=== PATIENT | female | born 1990 | race Caucasian/White ===

== ENCOUNTER 2017-08-16 17:39 | Emergency (ER) | payer OTHER ==
[~2017-08-16 17:39] MED LIST: IBUP600 PO; NIFE1TAB85 PO; OXYC1SOL5 PO; PREN1TAB30 PO
--- NOTE | 2017-08-16 19:27 | PD ---
HPI Chief Complaint Right lower quadrant pain and to the right inguinal area Date Seen: Aug 16, 2017 Time Seen: 19:15 Travel History International Travel<30 Days: No Contact w/Intl Traveler<30Days: No Known Affected Area: No History of Present Illness HPI 26-year-old white female at 22 weeks gestation who presents with the day long right lower quadrant pain that radiates in the right groin area. She denies fever vomiting but has had a minimal amount of nausea, no bleeding or leakage of fluid, heart tones 140s no contractions noted pain as sharp knifelike and hurts when she moves. Weeks Gestation: 22 Para: 1 : 2 History Obstetric History Obstetric History 1 Past Surgical History Narrative Surgical A Social History Alcohol Use: No Tobacco Use: No Substance Abuse: No Allergies-Medications (Allergen,Severity, Reaction): Coded Allergies: No Known Allergies (Unverified , 12/16/15) Home Meds Active Scripts Nifedipine (Nifedipine Er) 30 Mg Tab, 30 MG PO DAILY for hypertension, #10 TAB 1 Refill Prov:Rachelle Carranza MD 01/08/16 Oxycodone W/ Acetaminophen (Oxycodone/Acetaminophen 5-325 mg/5Ml) 5 mg/325 mg Tab, 1 TAB PO Q4H Y for PAIN, #30 TAB 0 Refills Prov:Rachelle Carranza MD 01/07/16 Ibuprofen (Motrin 600 Mg Tab) 600 Mg Tab, 600 MG PO Q6H Y for PAIN SCALE 1 TO 4 , #30 TAB 1 Refill Prov:Rachelle Carranza MD 01/07/16 Reported Medications Vit W/ Ferrous Fumara ( Vitamin 27-0.8 mg) 1 Tab Tab, 1 TAB PO DAILY 12/16/15 Review of Systems General / Constitutional: No: Fever, Weight Gain, Chills, Other Eyes: No: Diploplia, Blurred Vision, Visual changes, Pain, Photophobia HENT: No: Headaches, Vertigo, Lightheadedness Cardiovascular: No: Irregular Rhythm, Chest Pain or Discomfort, Palpitations, Tachycardia, Syncope, Varicosities, Edema, Cyanosis Respiratory: No: Cough, Short of Breath, Other Gastrointestinal: Abdominal Pain, No: Nausea, Vomiting, Diarrhea Genitourinary: No: Decreased Urinary Output, Oliguria Musculoskeletal: No: Limited ROM, Weakness, Cramping, Edema, Pain Skin: No Rash, No Itching, No Dryness, No Lumps, No Change in Pigmentation, No Change in Nails, No Alopecia, No Lesions Neurologic: No: Weakness, Dizziness, Syncope, Focal Abnormalities, Coordination Problem, Headache, Slurred Speech, Seizures Psychiatric: No: Depression, Suicidal Ideations, Homicidal Ideation Endocrine: No: Heat Intolerance, Cold Intolerance, Polydipsia, Polyuria, Other Physical Exam Narrative GENERAL: Well-nourished, well-developed patient. SKIN: Warm and dry. HEAD: Normocephalic and atraumatic. EYES: No scleral icterus. No injection or drainage. ENT: No nasal drainage noted. Mucous membranes pink. Airway patent. NECK: Supple, trachea midline. No JVD. CARDIOVASCULAR: Regular rate and rhythm without murmurs, gallops, or rubs. RESPIRATORY: Breath sounds equal bilaterally. No accessory muscle use. BREASTS: Bilateral exam showed no masses , no retractions, no nipple discharge. ABDOMEN/GI: Abdomen soft, non-tender, bowel sounds present, no rebound, no guarding Gravid to [22-] weeks size Fundal Height: [At umbilicus-] GENITOURINARY: External Genitalia: intact and normal in appearance BUS glands: [-] Cervix: [-Posterior] Dilatation: [Closed-] Effacement: [-] Thick Station: [-3] ] Membranes: [intact Uterine Contractions: [-none] FHT's: Category: [1-] Baseline: [-133] Reactive: [-yes] Variability: [mod-] Decels: [-0] EXTREMITIES: No cyanosis or edema. BACK: Nontender without obvious deformity. No CVA tenderness. NEUROLOGICAL: Awake and alert. Motor and sensory grossly within normal limits. Five out of 5 muscle strength in all muscle groups. Normal speech. Data Data Labs Urine dipstick is negative MDM Interpretation(s) Patient is 26-year-old white female PCS at 22 weeks who presents complaining right lower quadrant pain. That radiates into the right groin today. Pain is sharp worsening with movement. Her classic example round ligament pain. Urinalysis negative no contractions on the monitor, heart tones 140s. Cervix is closed high posterior Plan The patient was offered a pain shot but she did not want to do that. She will use Tylenol by mouth, heating pad, or hot bath relief. Increase her fluid intake. Patient hasn't 18-year-old baby that she carries all the time and has to deal with that can cause a lot of pain she was advised to stay at bedrest for a day or so somebody else help her with the baby Diagnosis Diagnosis: Primary Impression: Round ligament pain Additional Impression: 22 weeks gestation of Disposition: 01 DISCHARGE HOME Condition: Stable Ky Parra II, MD Aug 16, 2017 19:27
== END 2017-08-16 19:38 | disposition home or self-care (01) ==
LOC: HOBED 17:39
DX: O26.892 Other specified pregnancy related conditions, second trimester (principal); R10.2 Pelvic and perineal pain; Z3A.22 22 weeks gestation of pregnancy
CPT/HCPCS: 99283

== ENCOUNTER 2017-10-30 12:29 | Emergency (ER) | payer OTHER ==
[2017-10-30 12:54] VITALS: BP 115/70; PULSE 69
[2017-10-30 13:04] VITALS: TEMP 98.2
[2017-10-30 13:05] VITALS: BP 118/78; PULSE 80; RESP 20
--- NOTE | 2017-10-30 13:27 | PD ---
HPI Chief Complaint headaches, 7lb weight gain in 2 weeks Date Seen: Oct 30, 2017 Time Seen: 13:14 Travel History International Travel<30 Days: No Contact w/Intl Traveler<30Days: No History of Present Illness HPI Patient is a 27 year old at 33 and 0/7 weeks gestation by first trimester US who presents to the OB ED with headaches and increased weight gain of 7lb in two weeks. History significant for pre-eclampsia and placenta abruption necessitating CS delivery in 2015. She denies leakage of fluid, vaginal bleeding , and contractions. She feels baby moving regularly. She has mild headache relieved by acetaminophen and denies N/V/D/fever/sick contacts/SOB/calf pain/ dizziness/seeing spots. OB care is with Dr. Ramirez. History Past Medical History Medical History: Denies Significant Hx Obstetric History Obstetric History : 2015, CS 2/2 abruption, no post-operative complications reported G2: current, failed 1hr GTT = 159, 3 hr GTT pending Past Surgical History Narrative Surgical CS x 1 Family History Family History: Negative Social History Alcohol Use: No Tobacco Use: No Substance Abuse: No Allergies-Medications (Allergen,Severity, Reaction): Coded Allergies: No Known Allergies (Unverified , 12/16/15) Home Meds Active Scripts Nifedipine (Nifedipine Er) 30 Mg Tab, 30 MG PO DAILY for hypertension, #10 TAB 1 Refill Prov:Rachelle Carranza MD 01/08/16 Oxycodone W/ Acetaminophen (Oxycodone/Acetaminophen 5-325 mg/5Ml) 5 mg/325 mg Tab, 1 TAB PO Q4H Y for PAIN, #30 TAB 0 Refills Prov:Rachelle Carranza MD 01/07/16 Ibuprofen (Motrin 600 Mg Tab) 600 Mg Tab, 600 MG PO Q6H Y for PAIN SCALE 1 TO 4 , #30 TAB 1 Refill Prov:Rachelle Carranza MD 01/07/16 Reported Medications Vit W/ Ferrous Fumara ( Vitamin 27-0.8 mg) 1 Tab Tab, 1 TAB PO DAILY 12/16/15 Review of Systems Except as stated in HPI: all other systems reviewed are Neg Physical Exam Vital Signs Date Time Temp Pulse Resp B/P (MAP) Pulse Ox O2 Delivery O2 Flow Rate FiO2 10/30/17 13:05 20 10/30/17 13:04 98.2 10/30/17 12:54 69 115/70 (85) Narrative GENERAL: Well-nourished, well-developed patient. SKIN: Warm and dry. HEAD: Normocephalic and atraumatic. EYES: No scleral icterus. No injection or drainage. ENT: No nasal drainage noted. Mucous membranes pink. Airway patent. NECK: Supple, trachea midline. No JVD. CARDIOVASCULAR: Regular rate and rhythm without murmurs, gallops, or rubs. RESPIRATORY: Breath sounds equal bilaterally. No accessory muscle use. ABDOMEN/GI: Abdomen gravid, non-tender, bowel sounds present, no rebound, no guarding. GENITOURINARY: deferred Uterine Contractions: absent FHT's: Category: 1 Baseline: 120s Reactive: 140s Variability: mod Decels: absent EXTREMITIES: No cyanosis or edema. BACK: Nontender without obvious deformity. No CVA tenderness. NEUROLOGICAL: Awake and alert. Motor and sensory grossly within normal limits. Five out of 5 muscle strength in all muscle groups. Normal speech. Data Data Vital Signs Reviewed: Yes (BP 115/70, repeat 118/78, 98.2F) Orders Orders Vital Signs (Adult) .ON ADMISSION (10/30/17 13:03) ^ Labor Status (10/30/17 13:03) Urinalysis - C+S If Indicated (10/30/17 13:03) ^ Non Stress Test (10/30/17 13:03) ^ Hydration (10/30/17 13:03) Cbc No Diff, Includes Plts (10/30/17 13:03) Comprehensive Metabolic Panel (10/30/17 13:03) Uric Acid (10/30/17 13:03) Protein Creat Ratio, Random Ur (10/30/17 13:04) MDM Medical Record Reviewed: Yes Narrative Course / MDM 27 year old at 33 and 0/7 weeks gestation by first trimester US who presents to the OB ED with headaches and increased weight gain of 7lb in two weeks. Due to history of placental abruption, pre-eclampsia will proceed with PreE work-up. If labs wnl, will discharge home with routine follow up with Dr. Ramirez. No CTX. Intrauterine : Category 1 tracing Patient desires vaginal delivery Order CBC, CMP, UA, uric acid, urine protein/creatinine ratio IV fluids Monitor heart tones Routine care Hypertension in : History of pre-E in previous complicated by placental abruption, CS Had mild headache this morning, relieved by acetaminophen, no current headache No other symptoms Normal BP in OB ED Rule out preeclampsia as above Elevated 1 hr GTT: Per report Patient has 3 hr GTT ordered SDW Dr. Sadaf Buck Diagnosis Diagnosis: Primary Impression: 33 weeks gestation of Additional Impressions: History of pre-eclampsia Headache Disposition: DISCHARGE HOME Patient Instructions: Preeclampsia (ED) Annabelle Joe MD R2 Oct 30, 2017 13:27
[2017-10-30 13:32] LABS: HEMATOCRIT 33.3 % (35.0-46.0); MEAN CELL VOLUME 82.5 FL (80.0-100.0); MEAN CORPUSCULAR HEMOGLOBIN 27.3 PG (27.0-34.0); MEAN PLATELET VOLUME 8.3 FL (7.0-11.0); PLATELET COUNT 223 TH/MM3 (150-450); RED BLOOD COUNT 4.03 MIL/MM3 (4.00-5.30); RED CELL DISTRIBUTION WIDTH 13.4 % (11.6-17.2); WHITE BLOOD COUNT 9.5 TH/MM3 (4.0-11.0)
[2017-10-30 13:34] LABS: AMORPHOUS SEDIMENT, URINE RARE; BACTERIA, URINE OCC /hpf; BILIRUBIN, URINE NEG (NEG); BLOOD, URINE NEG (NEG); GLUCOSE,URINE NEG (NEG); KETONE, URINE NEG (NEG); MUCUS URINE FEW /lpf (OCC); NITRITE,URINE NEG (NEG); PH, URINE 6.5 (5.0-8.5); SQUAMOUS EPITHELIAL CELL URINE 3 /hpf (0-5); TRANSITIONAL EPI CELLS, URINE <1 /hpf; URINE COLOR LIGHT-YELLOW (YELLW/STRAW); URINE LEUKOCYTE ESTERASE TRACE (NEG)
[2017-10-30 13:58] LABS: ALBUMIN 2.9 GM/DL (3.4-5.0); ALT (GPT) 10 U/L (10-53); AST (GOT) 7 U/L (15-37); BICARBONATE 21.5 MEQ/L (21.0-32.0); BLOOD UREA NITROGEN 4 MG/DL (7-18); CALCIUM 8.6 MG/DL (8.5-10.1); CHLORIDE 108 MEQ/L (98-107); CREATININE 0.56 MG/DL (0.50-1.00); GLOMERULAR FILTRATION RATE 132 ML/MIN (>89); GLUCOSE,RANDOM 62 MG/DL (74-106); SODIUM (NA) 139 MEQ/L (136-145)
[2017-10-30 14:00] LABS: ALKALINE PHOSPHATASE 146 U/L (45-117); TOTAL BILIRUBIN ADULT 0.3 MG/DL (0.2-1.0); TOTAL PROTEIN 6.6 GM/DL (6.4-8.2)
== END 2017-10-30 14:04 | disposition home or self-care (01) ==
LOC: HOBED 12:29
DX: O26.893 Other specified pregnancy related conditions, third trimester (principal); R51 Headache; Z3A.33 33 weeks gestation of pregnancy
CPT/HCPCS: 36415; 59025; 80053; 81001; 82570; 84156; 84550; 85027

== ENCOUNTER 2017-11-10 16:14 | Emergency (ER) | payer OTHER ==
[2017-11-10] VITALS (20 sets, daily range): PULSE 81–103; O2SAT 99–100
[2017-11-10] MEDS ORDERED: ONDANSETRON HCL 4 MG/2 ML VIAL IV PUSH ONE (17:00)
[2017-11-10] MEDS ORDERED: LACTATED RINGER'S 1000 ML INJ 1,000 ML IV ONE (17:00)
--- NOTE | 2017-11-10 17:04 | PD ---
HPI Chief Complaint chills 3 days nausea and vomiting 3 days diarrhea 3 days Nasal congestion 1 week Travel History International Travel<30 Days: No Contact w/Intl Traveler<30Days: No Known Affected Area: No History of Present Illness HPI Pt is a 27 yo at 34 weeks and 4 days. EDC 12/18/2017, scheduled repeat C Section on 12-12-2017. care with Dr Ramirez. Pt reports nausea and vomiting, as well as diarrhea past 3 days days. Reports similar contacts at work with similar symptoms. Pt denies any cough but reports nasal congestion past 1 week Active movements. Patient denies any abdominal pain No vaginal bleeding or discharge. Weeks Gestation: 35 Para: 1 : 2 History Past Medical History Medical History: Denies Significant Hx Obstetric History Obstetric History previous C Section. was complicated by pre-eclampsia and placental abruption. Past Surgical History Narrative Surgical Previous C Section laparoscopic ovarian cystectomy Family History Family History: Negative Social History Alcohol Use: No Tobacco Use: No Substance Abuse: No Allergies-Medications (Allergen,Severity, Reaction): Coded Allergies: No Known Allergies (Unverified , 12/16/15) Home Meds Active Scripts Ondansetron Odt (Zofran Odt) 4 Mg Tab, 4 MG SL Q6HR Y for Nausea/Vomiting, #30 TAB 0 Refills Prov:Wicho Lucas MD 11/10/17 Nifedipine (Nifedipine Er) 30 Mg Tab, 30 MG PO DAILY for hypertension, #10 TAB 1 Refill Prov:Rachelle Carranza MD 01/08/16 Oxycodone W/ Acetaminophen (Oxycodone/Acetaminophen 5-325 mg/5Ml) 5 mg/325 mg Tab, 1 TAB PO Q4H Y for PAIN, #30 TAB 0 Refills Prov:Rachelle Carranza MD 01/07/16 Ibuprofen (Motrin 600 Mg Tab) 600 Mg Tab, 600 MG PO Q6H Y for PAIN SCALE 1 TO 4 , #30 TAB 1 Refill Prov:Rachelle Carranza MD 01/07/16 Reported Medications Vit W/ Ferrous Fumara ( Vitamin 27-0.8 mg) 1 Tab Tab, 1 TAB PO DAILY 12/16/15 Review of Systems Except as stated in HPI: all other systems reviewed are Neg Physical Exam Narrative GENERAL: Well-nourished, well-developed patient. SKIN: Warm and dry. HEAD: Normocephalic and atraumatic. EYES: No scleral icterus. No injection or drainage. ENT: No nasal drainage noted. Mucous membranes pink. Airway patent. NECK: Supple, trachea midline. No JVD. CARDIOVASCULAR: Regular rate and rhythm without murmurs, gallops, or rubs. RESPIRATORY: Breath sounds equal bilaterally. No accessory muscle use. BREASTS: Bilateral exam showed no masses , no retractions, no nipple discharge. ABDOMEN/GI: Abdomen soft, non-tender, bowel sounds present, no rebound, no guarding Gravid to [35] weeks size Fundal Height: [35cm] GENITOURINARY: External Genitalia: intact and normal in appearance BUS glands: [wnl] Cervix: [firm] Dilatation: [closed] Effacement: [uneffaced] Station: [-3] Presentation: [-] Membranes: [intact] Uterine Contractions: [rare] FHT's: Category: [1] Baseline: [140s] Reactive: [-] Variability: [good] Decels: [none] EXTREMITIES: No cyanosis or edema. BACK: Nontender without obvious deformity. No CVA tenderness. NEUROLOGICAL: Awake and alert. Motor and sensory grossly within normal limits. Five out of 5 muscle strength in all muscle groups. Normal speech. Data Data Vital Signs Reviewed: Yes [facility] Medical Record Reviewed: Yes Plan Pt is a 27 who presents at 34 weeks and 4 days with c/o nausea/ vomiting and diarrhea past 3 days. Pt has sick contacts at work. She is afebrile and lungs are clear. Likely viral gastroenteritis. Possible dehydration. UA sent, start LR IV bolus.IV antiemetic. CBC wnl, UA wnl, no suggestion of UTI, SG 1.025, Positive ketones. No electrolyte deficiency Patient feels better after IVF/ Zofran. Will DC home on Zofran ODT, advised liberal fluids. Has FU with office next week. Diagnosis Diagnosis: Primary Impression: 35 weeks gestation of Additional Impressions: Gastroenteritis Dehydration Ketonuria Disposition: 01 DISCHARGE HOME Condition: Stable Scripts Ondansetron Odt (Zofran Odt) 4 Mg Tab 4 MG SL Q6HR Y for Nausea/Vomiting, #30 TAB 0 Refills Prov: Wicho Lucas MD 11/10/17 Wicho Lucas MD Nov 10, 2017 17:04
[2017-11-10 17:44] LABS: HEMATOCRIT 31.8 % (35.0-46.0); HEMOGLOBIN 10.8 GM/DL (11.6-15.3); MEAN CELL VOLUME 80.8 FL (80.0-100.0); MEAN CORPUSCULAR HEMOGLOBIN 27.4 PG (27.0-34.0); MEAN CORPUSCULAR HGB CONC 33.9 % (32.0-36.0); MEAN PLATELET VOLUME 9.1 FL (7.0-11.0); PLATELET COUNT 195 TH/MM3 (150-450); RED BLOOD COUNT 3.93 MIL/MM3 (4.00-5.30); RED CELL DISTRIBUTION WIDTH 13.6 % (11.6-17.2); WHITE BLOOD COUNT 9.9 TH/MM3 (4.0-11.0)
[2017-11-10 17:54] LABS: AMORPHOUS SEDIMENT, URINE RARE; BILIRUBIN, URINE NEG (NEG); BLOOD, URINE NEG (NEG); CALCIUM OXALATE CRYSTALS,URINE FEW /hpf; GLUCOSE,URINE NEG (NEG); KETONE, URINE 40 mg/dL (NEG); MUCUS URINE MANY /lpf (OCC); NITRITE,URINE NEG (NEG); SQUAMOUS EPITHELIAL CELL URINE 2 /hpf (0-5); URINE COLOR YELLOW (YELLW/STRAW); URINE LEUKOCYTE ESTERASE NEG (NEG)
[2017-11-10 18:15] LABS: BICARBONATE 21.1 MEQ/L (21.0-32.0); CALCIUM 8.1 MG/DL (8.5-10.1); CREATININE 0.65 MG/DL (0.50-1.00)
[2017-11-10] MEDS ORDERED: ZOFR4TAB3 SL (18:27)
== END 2017-11-10 18:37 | disposition home or self-care (01) ==
LOC: HOBED 16:14
DX: O99.283 Endocrine, nutritional and metabolic diseases complicating pregnancy, third trimester (principal); E86.0 Dehydration; O99.613 Diseases of the digestive system complicating pregnancy, third trimester; K52.9 Noninfective gastroenteritis and colitis, unspecified; Z3A.35 35 weeks gestation of pregnancy
CPT/HCPCS: 59025; 80048; 81001; 85027; 96374; 99284; J2405; J7120

== ENCOUNTER 2017-11-13 12:23 | Emergency (ER) | payer OTHER ==
[2017-11-13] VITALS (7 sets, daily range): BP systolic 103–131; BP diastolic 73–83; PULSE 70–160; RESP 16
[~2017-11-13 12:23] MED LIST changes: +ZOFR4TAB3 SL
[2017-11-13 13:34] LABS: HEMATOCRIT 31.3 % (35.0-46.0); HEMOGLOBIN 10.6 GM/DL (11.6-15.3); MEAN CELL VOLUME 80.8 FL (80.0-100.0); MEAN CORPUSCULAR HEMOGLOBIN 27.3 PG (27.0-34.0); MEAN CORPUSCULAR HGB CONC 33.8 % (32.0-36.0); MEAN PLATELET VOLUME 8.8 FL (7.0-11.0); PLATELET COUNT 212 TH/MM3 (150-450); RED BLOOD COUNT 3.88 MIL/MM3 (4.00-5.30); RED CELL DISTRIBUTION WIDTH 13.5 % (11.6-17.2); WHITE BLOOD COUNT 6.8 TH/MM3 (4.0-11.0)
[2017-11-13 13:52] LABS: ALBUMIN 2.7 GM/DL (3.4-5.0); ALT (GPT) 13 U/L (10-53); BICARBONATE 20.3 MEQ/L (21.0-32.0); CALCIUM 8.5 MG/DL (8.5-10.1); CHLORIDE 111 MEQ/L (98-107); CREATININE 0.56 MG/DL (0.50-1.00); GLOMERULAR FILTRATION RATE 132 ML/MIN (>89); GLUCOSE,RANDOM 66 MG/DL (74-106); SODIUM (NA) 140 MEQ/L (136-145)
[2017-11-13 13:55] LABS: ALKALINE PHOSPHATASE 188 U/L (45-117); AST (GOT) 15 U/L (15-37); BLOOD UREA NITROGEN 5 MG/DL (7-18); TOTAL BILIRUBIN ADULT 0.3 MG/DL (0.2-1.0); TOTAL PROTEIN 6.5 GM/DL (6.4-8.2)
--- NOTE | 2017-11-13 14:01 | PD ---
HPI Chief Complaint Elevated blood pressure, diarrhea Date Seen: Nov 13, 2017 Time Seen: 13:56 Travel History International Travel<30 Days: No Contact w/Intl Traveler<30Days: No Known Affected Area: No History of Present Illness HPI 27-year-old 2 para 1 at 35+ weeks gestation who was sent by Dr. Ramirez' s office for evaluation of elevated blood pressure. Patient has a history of preeclampsia with her first . She has had noted elevated blood pressures prior to today when she had a single diastolic readings in the 90s. She denies headache, visual changes, abdominal pain. She has had diarrhea for the last 2-3 days which she feels like is improving. She reports good movement. Weeks Gestation: 35 History Past Medical History Narrative Medical No chronic diseases Medical History: Denies Significant Hx Obstetric History Obstetric History One prior delivery due to abruption complicated by preeclampsia Past Surgical History Narrative Surgical , laparoscopy Family History Family History: Negative Social History Alcohol Use: No Tobacco Use: No Substance Abuse: No Allergies-Medications (Allergen,Severity, Reaction): Coded Allergies: No Known Allergies (Unverified , 12/16/15) Home Meds Active Scripts Ondansetron Odt (Zofran Odt) 4 Mg Tab, 4 MG SL Q6HR Y for Nausea/Vomiting, #30 TAB 0 Refills Prov:Wicho Lucas MD 11/10/17 Nifedipine (Nifedipine Er) 30 Mg Tab, 30 MG PO DAILY for hypertension, #10 TAB 1 Refill Prov:Rachelle Carranza MD 01/08/16 Oxycodone W/ Acetaminophen (Oxycodone/Acetaminophen 5-325 mg/5Ml) 5 mg/325 mg Tab, 1 TAB PO Q4H Y for PAIN, #30 TAB 0 Refills Prov:Rachelle Carranza MD 01/07/16 Ibuprofen (Motrin 600 Mg Tab) 600 Mg Tab, 600 MG PO Q6H Y for PAIN SCALE 1 TO 4 , #30 TAB 1 Refill Prov:Rachelle Carranza MD 01/07/16 Reported Medications Vit W/ Ferrous Fumara ( Vitamin 27-0.8 mg) 1 Tab Tab, 1 TAB PO DAILY 12/16/15 Review of Systems Except as stated in HPI: all other systems reviewed are Neg Physical Exam Vital Signs Date Time Temp Pulse Resp B/P (MAP) Pulse Ox O2 Delivery O2 Flow Rate FiO2 11/13/17 13:16 77 131/80 (97) 11/13/17 13:15 16 11/13/17 13:14 76 117/80 (92) 11/13/17 13:05 70 119/73 (88) Narrative GENERAL: Well-nourished, well-developed patient. SKIN: Warm and dry. HEAD: Normocephalic and atraumatic. EYES: No scleral icterus. No injection or drainage. ENT: No nasal drainage noted. Mucous membranes pink. Airway patent. NECK: Supple, trachea midline. No JVD. CARDIOVASCULAR: Regular rate and rhythm without murmurs, gallops, or rubs. RESPIRATORY: Breath sounds equal bilaterally. No accessory muscle use. ABDOMEN/GI: Abdomen soft, non-tender, bowel sounds present, no rebound, no guarding Gravid to [-36] weeks size Fundal Height: [-] GENITOURINARY: External Genitalia: intact and normal in appearance BUS glands: [-] Cervix: [-] Dilatation: [-] Effacement: [-] Station: [-] Presentation: [-] Membranes: [intact or ruptured] Uterine Contractions: [Rare mild-] FHT's: Category: [-1] Baseline: [-] Reactive: [Yes-] Variability: [-] Decels: [-] EXTREMITIES: No cyanosis or edema. BACK: Nontender without obvious deformity. No CVA tenderness. NEUROLOGICAL: Awake and alert. Motor and sensory grossly within normal limits. Five out of 5 muscle strength in all muscle groups. Normal speech. Data Data Orders Orders Vital Signs (Adult) .ON ADMISSION (11/13/17 12:59) ^ Labor Status (11/13/17 12:59) ^ Non Stress Test (11/13/17 12:59) Cbc No Diff, Includes Plts (11/13/17 12:59) Comprehensive Metabolic Panel (11/13/17 12:59) Uric Acid (11/13/17 12:59) Protein Creat Ratio, Random Ur (11/13/17 12:59) Urinalysis - C+S If Indicated (11/13/17 13:30) Labs Laboratory Tests Test 11/13/17 13:00 White Blood Count 6.8 Red Blood Count 3.88 Hemoglobin 10.6 Hematocrit 31.3 Mean Corpuscular Volume 80.8 Mean Corpuscular Hemoglobin 27.3 Mean Corpuscular Hemoglobin Concent 33.8 Red Cell Distribution Width 13.5 Platelet Count 212 Mean Platelet Volume 8.8 Urine Random Creatinine 40 Urine Random Total Protein 12 Urine Protein/Creatinine Ratio 0.30 Creatinine 0.56 Random Glucose 66 Albumin 2.7 Calcium Level 8.5 Uric Acid 4.4 Alanine Aminotransferase (ALT/SGPT) 13 Sodium Level 140 Potassium Level 3.7 Chloride Level 111 Carbon Dioxide Level 20.3 Anion Gap 9 Estimat Glomerular Filtration Rate 132 MDM Medical Record Reviewed: Yes Narrative Course / MDM Assessment: 35+ week intrauterine with no evidence of further blood pressure elevations or preeclampsia today. Plan: Continue routine care with Dr. Ramirez. Signs and symptoms of preeclampsia were reviewed. Diagnosis Diagnosis: Primary Impression: 35 weeks gestation of Additional Impression: Elevated blood pressure affecting in third trimester, antepartum Disposition: 01 DISCHARGE HOME Condition: Good Jorge Cabrales MD Nov 13, 2017 14:01
[2017-11-13 22:45] LABS: AMORPHOUS SEDIMENT, URINE RARE; BACTERIA, URINE OCC /hpf; BILIRUBIN, URINE NEG (NEG); BLOOD, URINE NEG (NEG); GLUCOSE,URINE NEG (NEG); KETONE, URINE NEG (NEG); MUCUS URINE FEW /lpf (OCC); NITRITE,URINE NEG (NEG); PH, URINE 6.5 (5.0-8.5); SQUAMOUS EPITHELIAL CELL URINE <1 /hpf (0-5); URINE COLOR YELLOW (YELLW/STRAW); URINE LEUKOCYTE ESTERASE NEG (NEG)
== END 2017-11-13 14:12 | disposition home or self-care (01) ==
LOC: HOBED 12:23
DX: O26.893 Other specified pregnancy related conditions, third trimester (principal); R03.0 Elevated blood-pressure reading, without diagnosis of hypertension; O99.89 Other specified diseases and conditions complicating pregnancy, childbirth and the puerperium; R19.7 Diarrhea, unspecified; Z3A.35 35 weeks gestation of pregnancy
CPT/HCPCS: 36415; 59025; 80053; 81001; 82570; 84156; 84550; 85027

== ENCOUNTER 2017-11-16 11:07 | Emergency (ER) | payer OTHER ==
[~2017-11-16] VITALS: Ht 172.7 cm; Wt 88.0 kg
[2017-11-16 11:27] VITALS: BP 130/72; PULSE 71
[2017-11-16 11:30] VITALS: RESP 16; TEMP 98
--- NOTE | 2017-11-16 12:02 | PD ---
HPI Chief Complaint High blood pressure Date Seen: Nov 16, 2017 Time Seen: 11:52 Travel History International Travel<30 Days: No Contact w/Intl Traveler<30Days: No Known Affected Area: No History of Present Illness HPI 27-year-old 2 para 1 at 35+ weeks gestation who comes today for concerns that her blood pressure was elevated at home. She has a history of preeclampsia with her prior with placental abruption an emergency C- section. Her review of systems is notable for mild edema, mild headache but no visual changes or abdominal pain. She denies bleeding rupture of membranes or decreased movement. History Past Medical History Medical History: Denies Significant Hx Obstetric History Obstetric History Prior affected by severe preeclampsia with placental abruption an emergency This she is under the care of Dr. Ramirez and reports no complications. Past Surgical History Narrative Surgical Laparoscopy, Family History Family History: Negative Social History Alcohol Use: No Tobacco Use: No Substance Abuse: No Allergies-Medications (Allergen,Severity, Reaction): Coded Allergies: No Known Allergies (Unverified , 12/16/15) Home Meds Active Scripts Ondansetron Odt (Zofran Odt) 4 Mg Tab, 4 MG SL Q6HR Y for Nausea/Vomiting, #30 TAB 0 Refills Prov:Wicho Lucas MD 11/10/17 Nifedipine (Nifedipine Er) 30 Mg Tab, 30 MG PO DAILY for hypertension, #10 TAB 1 Refill Prov:Rachelle Carranza MD 01/08/16 Oxycodone W/ Acetaminophen (Oxycodone/Acetaminophen 5-325 mg/5Ml) 5 mg/325 mg Tab, 1 TAB PO Q4H Y for PAIN, #30 TAB 0 Refills Prov:Rachelle Carranza MD 01/07/16 Ibuprofen (Motrin 600 Mg Tab) 600 Mg Tab, 600 MG PO Q6H Y for PAIN SCALE 1 TO 4 , #30 TAB 1 Refill Prov:Rachelle Carranza MD 01/07/16 Reported Medications Vit W/ Ferrous Fumara ( Vitamin 27-0.8 mg) 1 Tab Tab, 1 TAB PO DAILY 12/16/15 Review of Systems Except as stated in HPI: all other systems reviewed are Neg Physical Exam Narrative GENERAL: Well-nourished, well-developed patient. SKIN: Warm and dry. HEAD: Normocephalic and atraumatic. EYES: No scleral icterus. No injection or drainage. ENT: No nasal drainage noted. Mucous membranes pink. Airway patent. NECK: Supple, trachea midline. No JVD. CARDIOVASCULAR: Regular rate and rhythm without murmurs, gallops, or rubs. RESPIRATORY: Breath sounds equal bilaterally. No accessory muscle use. BREASTS: Bilateral exam showed no masses , no retractions, no nipple discharge. ABDOMEN/GI: Abdomen soft, non-tender, bowel sounds present, no rebound, no guarding Gravid to [-] weeks size Fundal Height: [-] GENITOURINARY: External Genitalia: intact and normal in appearance BUS glands: [-] Cervix: [-] Dilatation: [-] Effacement: [-] Station: [-] Presentation: [-] Membranes: [intact or ruptured] Uterine Contractions: [-] FHT's: Category: [-1] Baseline: [-] Reactive: [-Yes] Variability: [-] Decels: [-] EXTREMITIES: No cyanosis, trace edema. BACK: Nontender without obvious deformity. No CVA tenderness. NEUROLOGICAL: Awake and alert. Motor and sensory grossly within normal limits. Five out of 5 muscle strength in all muscle groups. Normal speech. Data Data Vital Signs Reviewed: Yes Orders Orders Protein Creat Ratio, Random Ur (11/16/17 11:32) Vital Signs (Adult) .ON ADMISSION (11/16/17 11:33) ^ Labor Status (11/16/17 11:33) Urinalysis - C+S If Indicated (11/16/17 11:33) ^ Non Stress Test (11/16/17 11:33) MDM Medical Record Reviewed: Yes Narrative Course / MDM Assessment: 35+ week intrauterine without evidence of preeclampsia Plan: I discussed with the patient her appropriate anxiety regarding the events of her last . She is instructed to return to the OB ED as needed for concerns or reassurance. She'll follow up Sunday with Dr. Ramirez. Diagnosis Diagnosis: Primary Impression: 35 weeks gestation of Additional Impression: preeclampsia ruled out Disposition: 01 DISCHARGE HOME Condition: Good Jorge Cabrales MD Nov 16, 2017 12:01
[2017-11-16 12:31] LABS: AMORPHOUS SEDIMENT, URINE MOD; BACTERIA, URINE OCC /hpf; BILIRUBIN, URINE NEG (NEG); BLOOD, URINE NEG (NEG); GLUCOSE,URINE NEG (NEG); KETONE, URINE NEG (NEG); MUCUS URINE FEW /lpf (OCC); NITRITE,URINE NEG (NEG); PH, URINE 7.5 (5.0-8.5); SQUAMOUS EPITHELIAL CELL URINE 1 /hpf (0-5); URINE COLOR YELLOW (YELLW/STRAW); URINE LEUKOCYTE ESTERASE NEG (NEG)
== END 2017-11-16 14:30 | disposition home or self-care (01) ==
LOC: HOBED 11:07
DX: O26.893 Other specified pregnancy related conditions, third trimester (principal); R51 Headache; Z3A.35 35 weeks gestation of pregnancy
CPT/HCPCS: 59025; 81001; 82570; 84156

== ENCOUNTER 2017-12-06 10:29 | Inpatient (IN) | payer OTHER ==
[2017-12-06] VITALS (13 sets, daily range): BP systolic 124–153; BP diastolic 69–94; PULSE 18–77; RESP 16–24; TEMP 97.5–98; O2SAT 100
[~2017-12-06] VITALS: Ht 172.7 cm; Wt 88.9 kg
--- NOTE | 2017-12-06 11:33 | PD.PN.STU ---
Subjective Remarks Patient is a 27 y.o. white female at 38/2 weeks gestation presenting with abdominal pain, believed to be contractions. She woke up at 3 AM on 12/06/17 (8 hours prior to arrival) with back pain/"tightness" radiating to the front accompanied by sweating. She has had what she describes as intermittent Index- Rush contractions for the past 3 weeks. The abdominal pain comes every 7-8 minutes and lasts 45-60 seconds. The frequency or duration have not increased since symptoms began, but she says they have increased in intensity. She is scheduled for a C/S next week due to a previous placental abruption 2/2 preeclampsia. She denies any headache, blurred vision of RUQ pain this . She denies a decrease in movement, vaginal bleeding, or feeling a jackson of fluid. She states she passed her mucus plug 1 week ago. OB Hx: Prior C/S after emergent C/S at 40.5 weeks (preeclampsia and abruption) Received regular care throughout with Dr. Ramirez Denies any abnormal screening or ultrasounds Allergies: Denies Surgical Hx: Emergent C/S 2 years ago Laproscopic ovarian cyst removal in high school Minor dental procedures Family Hx: Denies a family history of bleeding disorders or defects Medical Hx: Denies any, including HTN, DM Medications: vitamin and iron Took low dose aspirin during until 1 month prior to admission Objective Vitals BP: 130/90 HR: 75 BPM Temp: 97.5 Objective Remarks General: Patient is lying in bed comfortably Head: normocephalic, atraumatic CV: RRR, no murmurs rubs or gallops. Equal pulses bilaterally Resp: CTAB, no wheezing, rhonchi Skin: No rashes or lesions Ext: Trace edema bilaterally in lower extremities. No overt signs of DVT Abdomen: Soft, nontender. Uterine fundus palpated in appropriate location. : External genitalia without lesions. -Closed cervix. -50% effaced -0 station A/P Assessment and Plan Assessment: 27 y.o. white female at 38.2 weeks presenting with contractions without cervical dilation. Plan: - Continue to monitor for increasing strength/frequency of contractions - Monitor vitals and heart tracings - F/U CBC, U/A - Type and Screen - Dr. Ramirez has agreed to come see the patient and discuss options with her, as he has provided her routine care - Encouraged to hydrate well Calvin Bunch M3 Dec 06, 2017 11:33
[2017-12-06 12:35] LABS: HEMATOCRIT 35.9 % (35.0-46.0); HEMOGLOBIN 11.7 GM/DL (11.6-15.3); MEAN CELL VOLUME 78.7 FL (80.0-100.0); MEAN CORPUSCULAR HEMOGLOBIN 25.6 PG (27.0-34.0); MEAN CORPUSCULAR HGB CONC 32.6 % (32.0-36.0); PLATELET COUNT 228 TH/MM3 (150-450); RED BLOOD COUNT 4.57 MIL/MM3 (4.00-5.30); RED CELL DISTRIBUTION WIDTH 14.1 % (11.6-17.2); WHITE BLOOD COUNT 8.9 TH/MM3 (4.0-11.0)
[2017-12-06 12:45] LABS: BACTERIA, URINE OCC /hpf; BILIRUBIN, URINE NEG (NEG); BLOOD, URINE NEG (NEG); GLUCOSE,URINE NEG (NEG); KETONE, URINE 10 mg/dL (NEG); MUCUS URINE MANY /lpf (OCC); NITRITE,URINE NEG (NEG); PH, URINE 6.5 (5.0-8.5); SQUAMOUS EPITHELIAL CELL URINE 2 /hpf (0-5); URINE COLOR YELLOW (YELLW/STRAW); URINE LEUKOCYTE ESTERASE NEG (NEG)
--- NOTE | 2017-12-06 14:35 | HHI.HP ---
History & Physical H&P HPI Chief Complaint Contractions Date Seen: Dec 06, 2017 Travel History International Travel<30 Days: No Contact w/Intl Traveler<30Days: No Known Affected Area: No History of Present Illness HPI Patient is a 27 year old at 38/2 weeks gestation who presents today for contractions. Contractions started at 3 AM every 7-8 minutes and lasting 45- 60seconds. The frequency or duration have not increased since symptoms began, but she says they have increased in intensity. She is scheduled for a C/S next week due to a previous placental abruption 2/2 preeclampsia. She denies any headache, blurred vision of RUQ pain this . She denies a decrease in movement, vaginal bleeding, gush or leaking of fluid. She states she passed her mucus plug 1 week ago. History (Limited) History Past Medical History Medical History: Denies Significant Hx Obstetric History Obstetric History Prior C/S after emergent C/S at 40.5 weeks (preeclampsia and abruption) Past Surgical History Narrative Surgical Laparoscopic ovarian cyst removal in high school Family History Family History: Negative Social History Alcohol Use: No Tobacco Use: No Substance Abuse: No Allergies-Medications Allergies-Medications (Allergen,Severity, Reaction): Coded Allergies: No Known Allergies (Unverified , 12/16/15) Home Meds Reported Medications Vit W/ Ferrous Fumara ( Vitamin 27-0.8 mg) 1 Tab Tab, 1 TAB PO DAILY 12/16/15 Discontinued Scripts Ondansetron Odt (Zofran Odt) 4 Mg Tab, 4 MG SL Q6HR Y for Nausea/Vomiting, #30 TAB 0 Refills Prov:Wicho Lucas MD 11/10/17 Nifedipine (Nifedipine Er) 30 Mg Tab, 30 MG PO DAILY for hypertension, #10 TAB 1 Refill Prov:Rachelle Carranza MD 01/08/16 Oxycodone W/ Acetaminophen (Oxycodone/Acetaminophen 5-325 mg/5Ml) 5 mg/325 mg Tab, 1 TAB PO Q4H Y for PAIN, #30 TAB 0 Refills Prov:Rachelle Carranza MD 01/07/16 Ibuprofen (Motrin 600 Mg Tab) 600 Mg Tab, 600 MG PO Q6H Y for PAIN SCALE 1 TO 4 , #30 TAB 1 Refill Prov:Rachelle Carranza MD 01/07/16 ROS Review of Systems Except as stated in HPI: all other systems reviewed are Neg General / Constitutional: No: Fever, Chills Eyes: No: Visual changes HENT: No: Headaches Cardiovascular: No: Chest Pain or Discomfort, Palpitations Respiratory: No: Cough, Short of Breath Gastrointestinal: No: Nausea, Vomiting Genitourinary: Pelvic Pain, Discharge, No: Dysuria, Vaginal Bleeding Musculoskeletal: No: Edema Psychiatric: No: Substance Abuse Physical Exam Physical Exam Narrative GENERAL: Well-nourished, well-developed patient. SKIN: Warm and dry. HEAD: Normocephalic and atraumatic. EYES: No scleral icterus. No injection or drainage. ENT: No nasal drainage noted. Mucous membranes pink. Airway patent. NECK: Supple, trachea midline. No JVD. CARDIOVASCULAR: Regular rate and rhythm without murmurs, gallops, or rubs. RESPIRATORY: Breath sounds equal bilaterally. No accessory muscle use. ABDOMEN/GI: Abdomen soft, non-tender, bowel sounds present, no rebound, no guarding Gravid to 38 weeks size GENITOURINARY: Membranes: intact Uterine Contractions: q7-10min FHT's: Category: I Baseline: 120 Reactive: + Variability: moderate Decels: none EXTREMITIES: No cyanosis or edema. BACK: Nontender without obvious deformity. NEUROLOGICAL: Awake and alert. Motor and sensory grossly within normal limits. Normal speech. Data Data Data Vital Signs Reviewed: Yes Orders Orders Cbc No Diff, Includes Plts (12/06/17 11:29) Type And Screen (12/06/17 11:29) Urinalysis - C+S If Indicated (12/06/17 12:23) Ob (2e) Additional Admit Info (12/06/17 13:27) Admit To Inpatient (12/06/17 ) Code Status (12/06/17 14:21) Vital Signs (Adult) .ON ADMISSION (12/06/17 14:21) Activity Oob Ad Daphne (12/06/17 14:21) Heart (12/06/17 14:21) Urinary Catheter Management RAFAEL.Q8H (12/06/17 14:21) ^ Preps (12/06/17 14:21) Scd / Mike / Foot Pump RAFAEL.QSHIFT (12/06/17 14:21) ^ Ultrasound For Locatio (12/06/17 14:21) Diet Npo (12/06/17 Dinner) Lactated Ringer's 1000 Ml Inj (Lr 1000 M (12/06/17 14:21) Lactated Ringer's 1000 Ml Inj (Lr 1000 M (12/06/17 14:51) Cefazolin 2 Gm Premix (Ancef 2 Gm Premix (12/06/17 15:30) Citric Acid-Sodium Citrate Liq (Bicitra (12/06/17 16:00) Complete Blood Count With Diff (12/06/17 14:21) Drug Screen, Random Urine (12/06/17 14:21) Inpatient Certification (12/06/17 ) Specimen To Be Collected PRN (12/06/17 14:21) Group B Strep: Negative Labs Laboratory Tests Test 12/06/17 10:55 12/06/17 11:50 Urine Color YELLOW Urine Turbidity CLEAR Urine pH 6.5 Urine Specific [place] 1.022 Urine Protein TRACE Urine Glucose (UA) NEG Urine Ketones 10 Urine Occult Blood NEG Urine Nitrite NEG Urine Bilirubin NEG Urine Urobilinogen LESS THAN 2.0 Urine Leukocyte Esterase NEG Urine RBC LESS THAN 1 Urine WBC 1 Urine Squamous Epithelial Cells 2 Urine Bacteria OCC Urine Mucus MANY Microscopic Urinalysis Comment CULT NOT INDICATED White Blood Count 8.9 Red Blood Count 4.57 Hemoglobin 11.7 Hematocrit 35.9 Mean Corpuscular Volume 78.7 Mean Corpuscular Hemoglobin 25.6 Mean Corpuscular Hemoglobin Concent 32.6 Red Cell Distribution Width 14.1 Platelet Count 228 Mean Platelet Volume 9.0 MDM MDM Medical Record Reviewed: Yes Narrative Course / MDM 27 year old at 38-2/7 weeks gestation. 1. IUP- Category I tracing, reassuring. 2. Contractions- Regular painful contractions correlating with contractions on the monitor, consistent with labor. Given history of placental abruption requiring emergency section, will proceed with delivery by . 3. GBS negative. 4. History of Preeclampsia and Placental Abruption dw Carla Lara MD, R3 Dec 06, 2017 14:35
[2017-12-06] MEDS ORDERED: LACTATED RINGER'S 1000 ML INJ 1,000 ML IV ONE (15:00)
[2017-12-06] MEDS ORDERED: ceFAZolin 2 GM PREMIX 50 ML IV SCH (15:30)
[2017-12-06] MEDS ORDERED: LACTATED RINGER'S 1000 ML INJ 1,000 ML IV SCH (15:31)
[2017-12-06] MEDS ORDERED: CITRIC ACID-SODIUM CITRATE LIQ 30 ML UDC PO SCH (16:00)
[2017-12-06] MEDS ORDERED: ACETAMINOPHEN 1000 MG/100 ML 100 ML IV ONE (16:46)
[2017-12-06] MEDS ORDERED: MORPHINE SULFATE PF 5 MG/10 ML VIAL ONE (16:46)
--- NOTE | 2017-12-06 19:27 | PD.OP ---
Operative Report Date of Surgery: Dec 06, 2017 Preoperative Diagnosis: Postoperative Diagnosis: Procedure: Low Transverse Section Anesthesia: Spinal Surgeon: Saira Ramirez Star Route Mail Driver(s): Joanne Quinones Resident Surgeon: Carla Knight Operation and Findings: PREOPERATIVE DIAGNOSIS 1. Intrauterine at 38-2/7 weeks gestation. 2. Labor 3. History of Placental Abruption 4. Repeat Section POSTOPERATIVE DIAGNOSIS 1. Intrauterine at 38-2/7 weeks gestation. 2. Labor 3. History of Placental Abruption 4. Repeat Section PROCEDURE Repeat low transverse section. FINDINGS: male weighing 3420g. Apgars 8/9. Normal fallopian tubes, ovaries, and uterus. ANESTHESIA Spinal. SURGEON Saira Ramirez MD CO-SURGEON Desi Knight MD, R3 COMPLICATIONS None. COUNTS Correct. ESTIMATED BLOOD LOSS 600 cc. FLUIDS Crystalloids. CONDITION The patient tolerated the procedure well and went to the recovery room in good condition. PROCEDURE IN DETAIL Under an adequate level of anesthesia, she was prepped and draped for abdominal surgery. The previous scar was removed with a Pfannenstiel incision and carried down to the fascia. The fascia was taken off the rectus muscle by blunt and sharp dissection. The rectus muscles were spread bluntly and the peritoneum was entered under direct vision without difficulty. The incision was extended with care to avoid the urinary bladder. A bladder blade was placed and a bladder flap created in the usual fashion. The uterine incision was made in a transverse manner along the lower uterine segment which was well-developed. It was taken down in the midline until the intrauterine cavity was entered. A mild amount of clear fluid was noted. The head was grasped fundal pressure applied. A Kiwi vacuum was used to assist with delivery of the head and the head was delivered without difficulty. A nuchal cord was reduced. The rest of the body was delivered without complications. The cord was doubly clamped and cut after 45 seconds of delayed cord clamping and the handed to the resuscitation team present. The placenta was delivered manually. The uterus was curettaged twice with a wet lap. The uterine incision was then repaired with 2-0 Vicryl in a running locking fashion, with the second layer imbricating the first. A uterine artery branch was found to be bleeding and was ligated with several sutures. Hemostasis was excellent. The cul-de-sac and gutters were cleaned of blood and debris. The uterus was delivered back into the abdomen. The rectus muscles were reapproximated with 0 Vicryl in a running fashion. The fascia was repaired from lateral to midline with 0 Vicryl and the subcu was repaired with 3-0 Vicryl in two layers. The skin was repaired with a 4-0 Vicryl in a subcuticular manner. The wound was sterilely dressed with a pressure dressing. She tolerated the procedure well and went to the recovery room in satisfactory condition. Carla Knight MD, R3 Dec 06, 2017 19:27
[2017-12-06] MEDS ORDERED: OXYTOCIN 30 UNITS-500ML PREMIX 500 ML IV ONE (19:30)
[2017-12-06] MEDS ORDERED: oxyCODONE/ACETAMINOPHEN 5 MG/325 MG TAB PO PRN (19:30)
[2017-12-06] MEDS ORDERED: ONDANSETRON HCL 4 MG/2 ML VIAL IV PUSH PRN (19:30)
[2017-12-06] MEDS ORDERED: ACETAMINOPHEN 325 MG TAB PO PRN (19:30)
[2017-12-06] MEDS ORDERED: SODIUM CHLORIDE 0.9% FLUSH 10 ML FLUSH IV FLUSH PRN (19:30)
[2017-12-06] MEDS ORDERED: OXYTOCIN 30 UNITS-500ML PREMIX 500 ML ONE (20:25)
[2017-12-06] MEDS ORDERED: ONDANSETRON HCL 4 MG/2 ML VIAL ONE (20:28)
[2017-12-06] MEDS ORDERED: ZOLPIDEM TARTRATE 5 MG TAB PO PRN (21:00)
[2017-12-06] MEDS ORDERED: SODIUM CHLORIDE 0.9% FLUSH 10 ML FLUSH IV FLUSH SCH (21:00)
[2017-12-07] MEDS ORDERED: LACTATED RINGER'S 1000 ML INJ 1,000 ML IV SCH (00:11)
[2017-12-07] MEDS: IBUPROFEN 600 MG TAB PO PRN ×4 (01:46→22:32)
[2017-12-07] MEDS ORDERED: EPIDURAL-NO SYSTEMIC NARCOTICS PRN (02:30)
[2017-12-07] MEDS ORDERED: EPIDURAL-DO NOT ADMINISTER ANTICOAGULANTS PRN (02:30)
[2017-12-07] MEDS ORDERED: EPIDURAL-NALOXONE HCL 0.4 MG/ML AMP IV PUSH PRN (02:30)
[2017-12-07] MEDS ORDERED: EPIDURAL-DIPHENHYDRAMINE HCL 50 MG CAP PO PRN (02:30)
[2017-12-07] MEDS ORDERED: EPIDURAL-DIPHENHYDRAMINE HCL 50 MG/ML VIAL IV PUSH PRN (02:30)
[2017-12-07 03:00] VITALS: BP 142/84; PULSE 68; RESP 18; TEMP 98.3
[2017-12-07] MEDS: ACETAMINOPHEN 1000 MG/100 ML 100 ML IV SCH ×2 (03:00→11:00)
[2017-12-07] MEDS ORDERED: OXYTOCIN 30 UNITS-500ML PREMIX 500 ML IV PRN (05:15)
[2017-12-07 06:12] LABS: AUTOMATED NEUTROPHIL # 10.8 TH/MM3 (1.8-7.7); BASOPHIL % 0.1 % (0.0-2.0); HEMATOCRIT 27.7 % (35.0-46.0); HEMOGLOBIN 9.3 GM/DL (11.6-15.3); LYMPHOCYTE # 1.1 TH/MM3 (1.0-4.8); MEAN CELL VOLUME 77.8 FL (80.0-100.0); MEAN CORPUSCULAR HEMOGLOBIN 26.2 PG (27.0-34.0); MEAN CORPUSCULAR HGB CONC 33.6 % (32.0-36.0); MEAN PLATELET VOLUME 8.9 FL (7.0-11.0); MONO % 5.8 % (0.0-8.0); MONOCYTE # 0.7 TH/MM3 (0-0.9); NEUT % 85.1 % (16.0-70.0); PLATELET COUNT 183 TH/MM3 (150-450); RED BLOOD COUNT 3.56 MIL/MM3 (4.00-5.30); RED CELL DISTRIBUTION WIDTH 13.8 % (11.6-17.2); WHITE BLOOD COUNT 12.7 TH/MM3 (4.0-11.0)
[2017-12-07] MEDS: DOCUSATE SODIUM 50 MG/SENNA 8.6 MG TAB PO PRN (08:21)
[2017-12-07] MEDS: SIMETHICONE 80 MG CHEWABLE TAB PO PRN ×2 (08:21→16:03)
--- NOTE | 2017-12-07 08:48 | HHI.OB ---
Subjective Post Operative Day: 1 Objective Vitals/I&O Vital Signs Date Time Temp Pulse Resp B/P (MAP) Pulse Ox O2 Delivery O2 Flow Rate FiO2 12/07/17 03:30 18 12/07/17 03:00 98.3 68 18 142/84 (103) 12/06/17 23:00 98.0 56 18 140/85 (103) 12/06/17 21:30 18 132/89 (103) 12/06/17 21:30 98.0 18 12/06/17 21:30 56 12/06/17 20:27 97.8 12/06/17 20:24 53 17 100 12/06/17 20:23 153/94 (113) 12/06/17 20:11 21 12/06/17 20:08 51 148/69 (95) 100 12/06/17 20:00 55 16 100 12/06/17 20:00 152/75 (100) 12/06/17 19:45 55 22 100 12/06/17 19:44 129/73 (91) 12/06/17 19:27 97.5 12/06/17 19:26 100 12/06/17 19:26 59 24 124/89 (101) 12/06/17 17:06 77 132/85 (101) Result Diagram: 12/07/17 0504 Objective Remarks GENERAL: Well-nourished, well-developed patient. CARDIOVASCULAR: Regular rate and rhythm without murmurs, gallops, or rubs. RESPIRATORY: Breath sounds equal bilaterally. No accessory muscle use. ABDOMEN/GI: Abdomen soft, non-tender, bowel sounds present. Incision: pressure dressing Clean, dry and intact. Fundus: Firm, non-tender at umbilicus. GENITOURINARY: Light to moderate bleeding. EXTREMITIES: No cyanosis or edema, non-tender, without signs of DVT. Medications and IVs Current Medications Medications (Trade) Dose Ordered Sig/Jayshree Route Start Time Stop Time Status Last Admin Lactated Ringer's 1,000 ml @ 100 mls/hr Q10H IV 12/07/17 00:11 12/07/17 20:10 12/07/17 00:11 Oxytocin 500 ml @ 100 mls/hr UNSCH X1 PRN IV 12/07/17 05:15 12/08/17 05:14 (NS Flush) 2 ml BID IV FLUSH 1/25/18 21:00 (NS Flush) 2 ml UNSCH PRN IV FLUSH 12/06/17 19:30 (Mylicon Chew) 80 mg QID PRN PO 12/06/17 19:30 12/07/17 08:21 (Tylenol) 650 mg Q6H PRN PO 12/06/17 19:30 (Motrin) 600 mg Q6H PRN PO 12/06/17 19:30 12/07/17 08:21 (Percocet 5-325 Mg) 1 tab Q4H PRN PO 12/06/17 19:30 (Percocet 5-325 Mg) 2 tab Q4H PRN PO 12/06/17 19:30 (Sarah-Colace) 2 tab Q12H PRN PO 12/06/17 19:30 12/07/17 08:21 (Ambien) 5 mg HS PRN PO 12/06/17 21:00 (M-M-R Ii Inj) 0.5 ml ONCE ONCE SQ 12/07/17 16:00 12/07/17 16:01 (Boostrix Inj) 0.5 ml ONCE ONCE IM 12/07/17 16:00 12/07/17 16:01 (Zofran Inj) 4 mg Q6H PRN IV PUSH 12/06/17 19:30 12/06/17 20:30 Miscellaneous Information NO SYSTEMIC NARCOTICS TO BE GIVEN FO... UNSCH PRN .XX 12/07/17 02:30 12/08/17 02:29 (Narcan Inj) 0.4 mg UNSCH PRN IV PUSH 12/07/17 02:30 12/08/17 02:29 (Benadryl Inj) 25 mg Q6H PRN IV PUSH 12/07/17 02:30 12/08/17 02:29 (Benadryl) 50 mg Q6H PRN PO 12/07/17 02:30 12/08/17 02:29 Miscellaneous Information ALL NURSING DEPARTMENTS UNSCH PRN .XX 12/07/17 02:30 12/08/17 02:29 Acetaminophen 100 ml @ 400 mls/hr Q8H IV 12/07/17 03:00 12/07/17 11:14 12/07/17 03:00 Assessment/Plan Problem List: (1) Anemia ICD Codes: D64.9 - Anemia, unspecified (2) S/P repeat low transverse ICD Codes: Z98.891 - History of uterine scar from previous surgery Assessment and Plan POD #1 repeat c/s pt doing well hgb 9.3 will order Venofer iv pain well controlled with oral pain medication bp stable breast and bottle feeding routine care Discharge Planning consider dc in 1-2 days Maria Luisa Brooks Dec 07, 2017 08:48
[2017-12-07 09:00] VITALS: BP 121/89; PULSE 100; RESP 18; TEMP 97.7; O2SAT 100
[2017-12-07] MEDS ORDERED: IRON SUCROSE INJ 200 MG in SODIUM CHLORIDE 0.9% INJ 100 ML IV SCH (11:00)
[2017-12-07 12:00] VITALS: BP 107/71; PULSE 65; RESP 18; TEMP 98; O2SAT 99
[2017-12-07] MEDS ORDERED: MEASLES, MUMPS, RUBELLA VACCINE 0.5 ML VIAL SQ ONE (16:00)
[2017-12-07] MEDS ORDERED: DIPHTH/TETANUS/ACEL PERTUSSIS (BOOSTER) 0.5 ML VIAL/PFS IM ONE (16:00)
[2017-12-07] MEDS ORDERED: OXYC1TAB63 PO (17:45)
[2017-12-07] MEDS ORDERED: IBUP-232 PO (17:45)
--- NOTE | 2017-12-07 17:45 | HHI.DCPOC ---
Discharge Care Plan Diagnosis: (1) delivery delivered (2) 38 weeks gestation of (3) Anemia Report Symptoms to Your Doctor -Temperature above 100.5 degrees -Redness, of incision or excessive or foul smelling drainage -Unusual pain or calf pain -Increased vaginal bleeding -Painful or difficulty urinating -Feelings of extreme sadness or anxiety after 2 weeks Goals to Promote Your Health * To prevent worsening of your condition and complications * To maintain your health at the optimal level Directions to Meet Your Goals Take your medications as prescribed Follow your dietary instruction Follow activity as directed Ensure plenty of rest for recovery Drink fluids for hydration Keep your appointments as scheduled Take your immunizations and boosters as scheduled If your symptoms worsen call your PCP, if no PCP go to Urgent Care Center or Emergency Room Smoking is Dangerous to Your Health. Avoid second hand smoke Call the 24-hour crisis hotline for domestic abuse at Saira Ramirez MD Dec 07, 2017 17:45
[2017-12-07] MEDS: oxyCODONE/ACETAMINOPHEN 5 MG/325 MG TAB PO PRN ×2 (18:23→22:33)
[2017-12-07 20:00] VITALS: BP 111/69; PULSE 73; RESP 18; TEMP 98.4; O2SAT 100
[2017-12-08] MEDS: IBUPROFEN 600 MG TAB PO PRN (06:35)
[2017-12-08] MEDS: DOCUSATE SODIUM 50 MG/SENNA 8.6 MG TAB PO PRN (06:35)
[2017-12-08] MEDS: oxyCODONE/ACETAMINOPHEN 5 MG/325 MG TAB PO PRN (06:36)
[2017-12-08 08:00] VITALS: BP 118/77; PULSE 78; RESP 18; TEMP 97.8; O2SAT 97
--- NOTE | 2017-12-08 08:29 | HHI.OB ---
Subjective Post Operative Day: 2 Remarks doing well, no dizziness, Ht= 27 Objective Vitals/I&O Vital Signs Date Time Temp Pulse Resp B/P (MAP) Pulse Ox O2 Delivery O2 Flow Rate FiO2 12/07/17 20:00 98.4 73 18 111/69 (83) 100 12/07/17 12:00 65 18 107/71 (83) 99 12/07/17 12:00 98.0 12/07/17 09:00 100 18 121/89 (100) 100 12/07/17 09:00 97.7 Result Diagram: 12/07/17 0504 Objective Remarks GENERAL: Well-nourished, well-developed patient. CARDIOVASCULAR: Regular rate and rhythm without murmurs, gallops, or rubs. RESPIRATORY: Breath sounds equal bilaterally. No accessory muscle use. ABDOMEN/GI: Abdomen soft, non-tender, bowel sounds present. Incision: Clean, dry and intact. Fundus: Firm, non-tender at umbilicus. GENITOURINARY: Light to moderate bleeding. EXTREMITIES: No cyanosis or edema, non-tender, without signs of DVT. Medications and IVs Current Medications Medications (Trade) Dose Ordered Sig/Jayshree Route Start Time Stop Time Status Last Admin (NS Flush) 2 ml BID IV FLUSH 12/06/17 21:00 (NS Flush) 2 ml UNSCH PRN IV FLUSH 12/06/17 19:30 (Mylicon Chew) 80 mg QID PRN PO 12/06/17 19:30 12/07/17 16:03 (Tylenol) 650 mg Q6H PRN PO 12/06/17 19:30 (Motrin) 600 mg Q6H PRN PO 12/06/17 19:30 12/08/17 06:35 (Percocet 5-325 Mg) 1 tab Q4H PRN PO 12/06/17 19:30 12/08/17 06:36 (Percocet 5-325 Mg) 2 tab Q4H PRN PO 12/06/17 19:30 (Sarah-Colace) 2 tab Q12H PRN PO 12/06/17 19:30 12/08/17 06:35 (Ambien) 5 mg HS PRN PO 12/06/17 21:00 (Zofran Inj) 4 mg Q6H PRN IV PUSH 12/06/17 19:30 12/06/17 20:30 Iron Sucrose 200 mg/Sodium Chloride 110 ml @ 110 mls/hr Q24H IV 12/07/17 11:00 12/09/17 11:59 12/07/17 10:20 Assessment/Plan Problem List: (1) Anemia ICD Codes: D64.9 - Anemia, unspecified (2) S/P repeat low transverse ICD Codes: Z98.891 - History of uterine scar from previous surgery Assessment and Plan POD #2 repeat c/s pt doing well Venofer iv pain well controlled with oral pain medication bp stable breast and bottle feeding routine care Discharge Planning routine Attending Attestation pt seen by Bri Ly MD Dec 08, 2017 08:29
== END 2017-12-08 14:24 | disposition home or self-care (01) | DRG 766 ==
LOC: HOBED 10:29 → H2EB 13:30 → H1EA 20:58
PROVIDERS: ADMIT Obstetrics & Gynecology; ATTEND Obstetrics & Gynecology
PROC: 10D00Z1 Extraction of Products of Conception, Low, Open Approach (ICD-10-PCS; principal; 2017-12-06)
DX: O34.211 Maternal care for low transverse scar from previous cesarean delivery (principal); D64.9 Anemia, unspecified; O99.02 Anemia complicating childbirth; Z37.0 Single live birth; Z3A.38 38 weeks gestation of pregnancy
CPT/HCPCS: 59025; 80307; 81001; 85025; 85027; 86850; 86900; 86901; 90715; J0131; J1756; J2274; J2405; J2590; J3010; J7120